=== PATIENT | male | born 1975 | race Caucasian/White ===

== ENCOUNTER 2025-04-09 11:27 | Day surgery (SDC) | payer OTHER ==
[~2025-04-09] VITALS: Ht 175.3 cm; Wt 80.7 kg
[~2025-04-09 11:27] MED LIST: ATOR40TA75 PO; LIDOCAINE 2% 100 MG/5 ML SDV (FOR ANES.) As Ordered ONE; OMEP-173 PO
[2025-04-09 13:27] VITALS: TEMP 97.7
[2025-04-09 13:45] VITALS: BP 121/74; O2SAT 92
== END 2025-04-09 13:50 | disposition home or self-care (01) ==
LOC: M OPP 11:27
PROVIDERS: ATTEND Internal Medicine Gastroenterology
DX: K44.9 Diaphragmatic hernia without obstruction or gangrene (principal); R12 Heartburn; G47.30 Sleep apnea, unspecified; Z79.899 Other long term (current) drug therapy

== ENCOUNTER → 2025-04-10 | Outpatient (CLI) | payer OTHER ==
[~2025-04-10] MED LIST changes: -LIDOCAINE 2% 100 MG/5 ML SDV (FOR ANES.) As Ordered ONE
== END ==
LOC: M EKG 15:08
PROVIDERS: ATTEND Physician Assistant
DX: R00.1 Bradycardia, unspecified (principal)

== ENCOUNTER → 2025-04-24 | Outpatient (CLI) | payer OTHER | LOC: M CARPUL 08:07 | PROVIDERS: ATTEND Physician Assistant | DX: R94.31 Abnormal electrocardiogram [ECG] [EKG] (principal) ==